=== PATIENT | female | born 1945 | race Caucasian/White ===

== ENCOUNTER → 2021-03-17 | Day surgery (SDC) | payer MEDICARE ==
[2021-03-17 09:51] LABS: African American GFR (CKD) >90 (>60 ml/min/1.73 sqM); Blood Urea Nitrogen 17 mg/dL (7-17); Non-African American GFR(CKD) 87 (>60 ml/min/1.73 sqM)
[2021-03-17 11:59] VITALS: RESP 16
--- NOTE | 2021-03-17 12:30 | CT ---
EXAMINATION TYPE: CT brain w con DATE OF EXAM: 03/17/2021 COMPARISON: None HISTORY: history of breast cancer, mets CT DLP: 993.9 mGycm Automated exposure control for dose reduction was used. CONTRAST: CT scan of the head is performed with IV Contrast, patient injected with 100 mL of Isovue 300. FINDINGS: There is no abnormal enhancing mass or midline shift identified. The ventricles and sulci are within normal limits in size. The globes are intact and the visualized sinuses are clear. Suspicion for a 5 mm area of enhancement in the posterior parietal white matter on axial image 31. Recommend MRI. [employer] niocervical junction demonstrates low-lying cerebellar tonsils. Faint low attenuation in the white ma tter are nonspecific but most typical of remote white matter ischemia. IMPRESSION: 1. Suspicion for a 5 mm nodular area of enhancement posterior right parietal white matter axial image 31. Recommend follow-up MRI. 2. Correlate for Chiari malformation. Recommend follow-up MRI.
[2021-03-17 13:33] VITALS: BP 125/50; PULSE 69; TEMP 97.5
--- NOTE | 2021-03-17 13:45 | USB ---
EXAMINATION TYPE: US biopsy breast VAD LT DATE OF EXAM: 03/17/2021 CLINICAL HISTORY: N63 Breast Lump mass,C50.012,Z03.89,Z85.3 HX OF CA. TECHNIQUE: Ultrasound guided vaccuum assisted core biopsy of left breast. COMPARISON: Mammogram 03/17/2021 FINDINGS: The ultrasound guided core biopsy procedure was explained to the patient. The risks, benef its, alternatives were discussed. An informed consent was then obtained. Timeout was performed. The patient was placed in supine positioning for imaging and for the procedure. The overlying skin w as prepped with betadine and sterilely draped in usual sterile fashion. Lidocaine 1% was used as ane sthetic into the skin and deeper breast tissue up to area of concern in the breast. Lidocaine with ep inephrine was used deeper regions adjacent to the lesion. A small skin eleazar was made with surgical sc alpel. Under ultrasound guidance, a 12-gauge vacuum assisted biopsy device was used to obtain 6 core samples . A biopsy clip was left in lesion. Waiting clip was placed at the lateral edge of the lesion on ul trasound. Good hemostasis was obtained with direct pressure. Discharge instructions were discussed with the emi staples. The patient will follow up with the referring physician for results. Postprocedure mammogram: The patient was transferred to mammography for physician ordered post proced ure mammogram for clip placement verification. The clip is in the expected region of the biopsy. The patient tolerated the procedure well without any immediate complication. The patient was dischar ged to home in stable condition. IMPRESSION: 1. Successful ultrasound guided biopsy left breast. Recommendations: 1. Recommendations are pending pathology results.
--- NOTE | 2021-03-18 14:44 | MM ---
Reason for exam: clinical finding. History: Patient is postmenopausal, has history of breast cancer at age 75, and history of other cancer. Family history of breast cancer in sister at age 60. Chemotherapy, October 2020. Benign excisional biopsy of the right breast, 2000. Physical Findings: Nurse did not find any significant physical abnormalities on exam. MG 3D Diag Mammo W/Cad DENNIS Bilateral CC and MLO view(s) were taken. No prior studies available for comparison. The breast tissue is heterogeneously dense. This may lower the sensitivity of mammography. Finding: There are extensive linear, fine, round, grouped/clustered calcifications in the upper outer quadrant, anterior position of the left breast 3cm from the nipple. Previous mammotome biopsy in the right breast. These results were verbally communicated with the patient and result sheet given to the patient on 03/17/21. ASSESSMENT: Incomplete: need additional imaging evaluation, BI-RAD 0 RECOMMENDATION: Ultrasound of the left breast.
--- NOTE | 2021-03-18 14:54 | USB ---
Reason for exam: additional evaluation requested from abnormal screening. History: Patient is postmenopausal, has history of breast cancer at age 75, and history of other cancer. Family history of breast cancer in sister at age 60. Chemotherapy, October 2020. Benign excisional biopsy of the right breast, 2000. US Breast Axilla LT Left complete breast ultrasound includes all four quadrants, the retroareolar region and axilla. Finding demonstrates a 1.6 x 1.2 x 1.8cm spiculated, irregular, hypoechoic, vascular lesion at 1 o'clock and a duct ectasia with debris and calcification at the posterior nipple. These results were verbally communicated with the patient and result sheet given to the patient on 03/17/21. ASSESSMENT: Suspicious, BI-RAD 4 RECOMMENDATION: Ultrasound core biopsy of the left breast. Called Dr. Ocampo's office with mammographic findings. Biopsy scheduled for 03/17/21 at 1:00. PRELIMINARY REPORT CALLED AND FAXED TO DR. OCAMPO ON 03/17/21.
== END ==
LOC: EDSTATUS 07:40 → RADMAMWWP 07:40
PROVIDERS: ATTEND Internal Medicine Hematology & Oncology
DX: N63.20 Unspecified lump in the left breast, unspecified quadrant (principal); Z85.3 Personal history of malignant neoplasm of breast; C50.012 Malignant neoplasm of nipple and areola, left female breast; Z78.0 Asymptomatic menopausal state; Z80.3 Family history of malignant neoplasm of breast
CPT/HCPCS: 38525; 88305; 82565; 84520; 77066; 19083; 76642; 70460; 36415; G0279; A4648; J2001; Q9967; 77062; 77065

== ENCOUNTER → 2021-04-15 | Outpatient (CLI) | payer MEDICARE ==
[2021-04-15 12:03] LABS: African American GFR (CKD) >90 (>60 ml/min/1.73 sqM); Blood Urea Nitrogen 19 mg/dL (7-17); Non-African American GFR(CKD) 88 (>60 ml/min/1.73 sqM)
--- NOTE | 2021-04-15 13:59 | CT ---
EXAMINATION TYPE: CT ChestAbdPelvis w con DATE OF EXAM: 04/15/2021 COMPARISON: None at this institution. HISTORY: Breast cancer, METS suspected CT DLP: 736.1 mGycm. Automated Exposure Control for Dose Reduction was Utilized. CONTRAST: CT scan of the thorax, abdomen and pelvis is performed with oral and with IV Contrast, patient inject ed with 100 mL of Isovue 300. FINDINGS: LUNGS: Mild to moderate biapical pleural/parenchymal scarring. Mild to moderate bibasilar parenchymal linear scarring and/or atelectasis. Slightly more nodular appearance just above diaphragm, for refer ence and 1.9 x 1.4 cm nodule or nodular thickening axial image 47. Additional smaller areas of nodula rity in both bases noted Reticulation in the superior aspect right lower lobe MEDIASTINUM: There are no greater than 1 cm hilar or mediastinal lymph nodes. Tiny pericardial effusi on is seen. Mild cardiomegaly. OTHER: Right internal jugular Mediport catheter terminates in SVC. Surgical changes left breast just above the nipple axial image 28. Nonspecific but suspicious 9 mm left axillary lymph node axial image 18. LIVER/GB: Scattered hypodense lesions throughout the liver, some consistent with benign thin-walled c ysts, others too small to definitively characterize like right hepatic dome lesion on axial image 51. PANCREAS: No significant abnormality is seen. SPLEEN: No significant abnormality is seen. ADRENALS: No significant abnormality is seen. KIDNEYS: No significant abnormality is seen. BOWEL: Small sized hiatal hernia. Oral contrast reaches level of right colon. No suspicious small or large bowel dilatation GENITAL ORGANS: Slightly retroflexed uterus. Roughly 1.0 cm fundal calcification possible calcified f ibroid axial image 102 anteriorly. LYMPH NODES: No greater than 1cm abdominal or pelvic lymph nodes are appreciated. OSSEOUS STRUCTURES: Demineralization is present. Kyphoplasty at moderate to severe compression fractu re L4 level. Slight grade 1 anterolisthesis L3 on L4. Suspicious round sclerotic lesion posterior to T9 level sagittal image 57. Suspicious smaller sclerotic foci involving T10 vertebra are thought pres ent. Incidental calcified disc T10-T11 level. OTHER: No significant additional abnormality is seen. IMPRESSION: Nonspecific but Suspicious 9 mm left axillary lymph node. Moderate basilar parenchymal s carring and/or atelectasis with slightly suspicious nodular component just above diaphragm bilaterall y. Nonspecific liver lesions. Nonspecific but suspicious sclerotic foci largest lesion T9 level. All findings should be correlated with old outside imaging to better evaluate if neoplastic in origin and to determine need for further workup.
== END | disposition home or self-care (01) ==
LOC: RADCTMAIN 11:15
PROVIDERS: ATTEND Internal Medicine Hematology & Oncology
DX: Z03.89 Encounter for observation for other suspected diseases and conditions ruled out (principal); C50.012 Malignant neoplasm of nipple and areola, left female breast
CPT/HCPCS: 82565; 84520; 71260; 74177; 36415; Q9967 ×2

== ENCOUNTER → 2021-05-09 | Outpatient (CLI) | payer MEDICARE ==
--- NOTE | 2021-05-09 09:51 | PE ---
EXAMINATION TYPE: PET CT fusion skull to thigh DATE OF EXAM: 05/09/2021 COMPARISON: Most recent full body CT April 15, 2021 HISTORY: Recent abnormal CT, solitary pulmonary nodule. Left-sided breast cancer diagnosed and treated 2010 per patient. Recent benign left breast biopsy Aug ust 2020 TECHNIQUE: Following the intravenous administration of 12.58 mCi of F-18 FDG, whole body images are performed from the skull base to the midthigh. Images are reviewed on the computer in the coronal, a xial, and sagittal planes. Reconstructed rotating images are created on independent workstation and reviewed on the computer. A localization and attenuation correction CT is performed in conjunction with the PET scan. Blood glucose level equals 82. SCAN: Subsequent Scan FINDINGS: SKULL BASE AND NECK: No areas of abnormal hypermetabolic uptake. CHEST, MEDIASTINUM, AND HILAR REGION: Suspect treatment changes to the left breast laterally with jarocho cifications axial image 88. Slightly prominent but subcentimeter left axillary lymph node axial image 76 shows no hypermetabolic uptake. Slight nodularity or nodular scarring posteriorly in the lung bas es remains present without abnormal hypermetabolic uptake. No areas of abnormal hypermetabolic uptake . ABDOMEN AND PELVIS: No areas of abnormal hypermetabolic uptake. Normal excretion. OSSEOUS STRUCTURES: No areas of abnormal hypermetabolic uptake. OTHER CT: Stable right internal jugular Mediport catheter. Coronary artery calcification redemonstrat ed. Stable tiny pericardial effusion and mild cardiomegaly. Simple appearing thin-walled cysts throughout the liver redemonstrated. Gallbladder surgically absent . Small-sized hiatal hernia redemonstrated. Calcified near 1 cm uterine fibroid in the fundus redemon strated. Vertebral plasty at mild to moderate compression fracture L4 level again seen. Underlying scoliotic c urvature. Facet arthropathy lower lumbar levels. IMPRESSION: No suspicious hypermetabolic uptake to suggest metastatic hypermetabolic malignancy.
== END | disposition home or self-care (01) ==
LOC: RADPETMAIN 07:27
PROVIDERS: ATTEND Internal Medicine Hematology & Oncology
DX: C50.012 Malignant neoplasm of nipple and areola, left female breast (principal); R91.1 Solitary pulmonary nodule
CPT/HCPCS: 78815; A9552

== ENCOUNTER 2021-06-10 21:17 | Inpatient (IN) | payer MEDICARE ==
[2021-06-10] MEDS ORDERED: SODIUM CHLORIDE 0.9% 1,000 ML IV STA (21:35)
--- NOTE | 2021-06-10 21:40 | ED ---
Recheck HPI - General Chief Complaint: Recheck/Abnormal Lab/Rx Stated Complaint: Irregular CT Time Seen by Provider: 06/10/21 21:32 Source: patient, family, RN notes reviewed, old records reviewed, Caregiver Mode of arrival: ambulatory Limitations: no limitations, altered mental status - History of Present Illness Initial Comments: This is a 75-year-old female to the emergency room x-ray. Patient Dese for evaluation of altered mental status with altered an abnormal outpatient computed tomography scan. Patient presents today for evaluation regards to these symptoms. Patient was called and told to come the hospital secondary to abnormal computed tomography scan. Patient is aware of positive computed tomography scan findings for brain metastasis MD Complaint: abnormal lab (Computed tomography scan positive for brain m etastasis) Initial Visit For: other (Occasional headaches and altered mental status) Returns Today for: persistent/worsening pain related to initial visit Symptoms Since Prior Visit: worsening pain Context: called for abnormal lab result (Computed tomography scan abnormal) Associated Symptoms: none Treatments Prior to Arrival: home treatments - Related Data Home Medications Medication Instructions Recorded Confirmed Levothyroxine Sodium [Synthroid] 150 mcg PO DAILY 03/10/21 06/10/21 Calcium Carbonate [Calcium] 600 mg PO DAILY 06/10/21 06/10/21 Cholecalciferol [Vitamin D3 (25 25 mcg PO DAILY 06/10/21 06/10/21 Mcg = 1000 Iu)] Gabapentin [Neurontin] 300 mg PO DAILY 06/10/21 06/10/21 HYDROmorphone HCL 2 - 4 mg PO Q3H PRN 06/10/21 06/10/21 Sennosides [Senna] 17.2 mg PO DAILY 06/10/21 06/10/21 fentaNYL 50MCG/HR PATCH [Duragesic 50 mcg TRANSDERM Q72H 06/10/21 06/10/21 50MCG/HR] Allergies Allergy/AdvReac Type Severity Reaction Status Date / Time shellfish derived [Shellfish] Allergy Vomiting Verified 06/10/21 21:54 Review of Systems ROS Statement: Those systems with pertinent positive or pertinent negative responses have been documented in the HPI. ROS Other: All systems not noted in ROS Statement are negative. Past Medical History Past Medical History: Cancer, Hypertension, Pneumonia, Thyroid Disorder Additional Past Medical History / Comment(s): cancer to the spine, brain, lungs, chemo 2020 History of Any Multi-Drug Resistant Organisms: None Reported Past Surgical History: Back Surgery Additional Past Surgical History / Comment(s): L4 surgery October 2020 Past Anesthesia/Blood Transfusion Reactions: No Reported Reaction Past Psychological History: No Psychological Hx Reported Smoking Status: Former smoker Past Alcohol Use History: None Reported Past Drug Use History: None Reported General Exam Limitations: no limitations General appearance: alert, in no apparent distress Head exam: Present: atraumatic, normocephalic, normal inspection Eye exam: Present: normal appearance, PERRL, EOMI. Absent: scleral icterus, conjunctival injection, periorbital swelling ENT exam: Present: normal exam, mucous membranes moist Neck exam: Present: normal inspection. Absent: tenderness, meningismus, lymphadenopathy Respiratory exam: Present: normal lung sounds bilaterally. Absent: respiratory distress, wheezes, rales, rhonchi, stridor Cardiovascular Exam: Present: regular rate, normal rhythm, normal heart sounds. Absent: systolic murmur, diastolic murmur, rubs, gallop, clicks GI/Abdominal exam: Present: soft, normal bowel sounds. Absent: distended, tenderness, guarding, rebound, rigid Extremities exam: Present: normal inspection, full ROM, normal capillary refill. Absent: tenderness, pedal edema, joint swelling, calf tenderness Back exam: Present: normal inspection Neurological exam: Present: alert, oriented X3, CN II-XII intact Psychiatric exam: Present: normal affect, normal mood Skin exam: Present: warm, dry, intact, normal color. Absent: rash Course Vital Signs 06/10/21 21:25 Temperature 98.7 F Pulse Rate 71 Respiratory 20 Rate Blood Pressure 172/77 O2 Sat by Pulse 99 Oximetry - Reevaluation(s) Reevaluation #1: 06/10/21 22:50 Medical record is reviewed Reevaluation #2: 06/10/21 22:50 Patient family informed of results and questions have been answered - Consultations Consultation #1: Spoke with H who agree to admit this patient Medical Decision Making - Medical Decision Making 75 female with breast cancer now no metastasis to brain. Patient be admitted for steroids secondary to vasogenic edema, monitoring and cancer control - Lab Data Result diagrams: 06/10/21 21:56 06/10/21 21:56 Lab Results 06/10/21 06/10/21 06/10/21 Range/Units 21:56 21:56 21:56 WBC 5.0 (3.8-10.6) k/uL RBC 4.15 (3.80-5.40) m/uL Hgb 12.5 (11.4-16.0) gm/dL Hct 38.6 (34.0-46.0) % MCV 93.0 (80.0-100.0) fL MCH 30.0 (25.0-35.0) pg MCHC 32.3 (31.0-37.0) g/dL RDW 16.2 H (11.5-15.5) % Plt Count 206 (150-450) k/uL MPV 7.2 Neutrophils % 59 % Lymphocytes % 30 % Monocytes % 6 % Eosinophils % 3 % Basophils % 1 % Neutrophils # 2.9 (1.3-7.7) k/uL Lymphocytes # 1.5 (1.0-4.8) k/uL Monocytes # 0.3 (0-1.0) k/uL Eosinophils # 0.1 (0-0.7) k/uL Basophils # 0.0 (0-0.2) k/uL Anisocytosis Slight PT 10.6 (9.0-12.0) sec INR 1.0 (<1.2) APTT 24.8 (22.0-30.0) sec Sodium 136 L (137-145) mmol/L Potassium 4.1 (3.5-5.1) mmol/L Chloride 100 (98-107) mmol/L Carbon Dioxide 30 (22-30) mmol/L Anion Gap 6 mmol/L BUN 20 H (7-17) mg/dL Creatinine 0.83 (0.52-1.04) mg/dL Est GFR (CKD-EPI)AfAm 81 (>60 ml/min/1.73 sqM) Est GFR (CKD-EPI)NonAf 70 (>60 ml/min/1.73 sqM) Glucose 96 (74-99) mg/dL Calcium 10.9 H (8.4-10.2) mg/dL Phosphorus 3.9 (2.5-4.5) mg/dL Magnesium 2.2 (1.6-2.3) mg/dL Total Bilirubin 0.4 (0.2-1.3) mg/dL AST 33 (14-36) U/L ALT 16 (4-34) U/L Alkaline Phosphatase 51 (38-126) U/L Troponin I (0.000-0.034) ng/mL Total Protein 6.8 (6.3-8.2) g/dL Albumin 4.0 (3.5-5.0) g/dL 06/10/21 Range/Units 21:56 WBC (3.8-10.6) k/uL RBC (3.80-5.40) m/uL Hgb (11.4-16.0) gm/dL Hct (34.0-46.0) % MCV (80.0-100.0) fL MCH (25.0-35.0) pg MCHC (31.0-37.0) g/dL RDW (11.5-15.5) % Plt Count (150-450) k/uL MPV Neutrophils % % Lymphocytes % % Monocytes % % Eosinophils % % Basophils % % Neutrophils # (1.3-7.7) k/uL Lymphocytes # (1.0-4.8) k/uL Monocytes # (0-1.0) k/uL Eosinophils # (0-0.7) k/uL Basophils # (0-0.2) k/uL Anisocytosis PT (9.0-12.0) sec INR (<1.2) APTT (22.0-30.0) sec Sodium (137-145) mmol/L Potassium (3.5-5.1) mmol/L Chloride (98-107) mmol/L Carbon Dioxide (22-30) mmol/L Anion Gap mmol/L BUN (7-17) mg/dL Creatinine (0.52-1.04) mg/dL Est GFR (CKD-EPI)AfAm (>60 ml/min/1.73 sqM) Est GFR (CKD-EPI)NonAf (>60 ml/min/1.73 sqM) Glucose (74-99) mg/dL Calcium (8.4-10.2) mg/dL Phosphorus (2.5-4.5) mg/dL Magnesium (1.6-2.3) mg/dL Total Bilirubin (0.2-1.3) mg/dL AST (14-36) U/L ALT (4-34) U/L Alkaline Phosphatase (38-126) U/L Troponin I <0.012 (0.000-0.034) ng/mL Total Protein (6.3-8.2) g/dL Albumin (3.5-5.0) g/dL - Radiology Data Radiology results: report reviewed (CT brain done an outpatient basis was positive for brain metastasis) Disposition Clinical Impression: Altered mental state, Brain metastasis, Breast cancer Disposition: ADMITTED IP TO THIS HOSP Condition: Fair Is patient prescribed a controlled substance at d/c from ED?: No Referrals: Steffanie Riley MD [Primary Care Provider] - 1-2 days
[2021-06-10] MEDS: DEXAMETHASONE SOD PHOSPHATE 10 MG/ML 1 ML VIAL IVP STA ×2 (22:12→23:22)
[2021-06-10 22:20] LABS: Anisocytosis Slight; Basophils % (A) 1 %; Eosinophils # (A) 0.1 k/uL (0-0.7); Eosinophils % (A) 3 %; HCT 38.6 % (34.0-46.0); HGB 12.5 gm/dL (11.4-16.0); Lymphocytes # (A) 1.5 k/uL (1.0-4.8); Lymphocytes % (A) 30 %; MCHC 32.3 g/dL (31.0-37.0); Mean Platelet Volume 7.2; Monocytes # (A) 0.3 k/uL (0-1.0); Monocytes % (A) 6 %; Neutrophils # (A) 2.9 k/uL (1.3-7.7); Neutrophils % (A) 59 %; Platelet Count 206 k/uL (150-450); RBC 4.15 m/uL (3.80-5.40); RDW 16.2 % (11.5-15.5)
[2021-06-10 22:29] LABS: Partial Thromboplastin Time 24.8 sec (22.0-30.0); Prothrombin Time 10.6 sec (9.0-12.0)
[2021-06-10 22:37] LABS: Calcium 10.9 mg/dL (8.4-10.2); Magnesium 2.2 mg/dL (1.6-2.3); Phosphorus 3.9 mg/dL (2.5-4.5); Potassium 4.1 mmol/L (3.5-5.1); Total Bilirubin 0.4 mg/dL (0.2-1.3); Total Protein 6.8 g/dL (6.3-8.2)
[2021-06-10] MEDS ORDERED: NALOXONE 0.4 MG/ML 1 ML VIAL IV PRN (22:46)
[2021-06-10] MEDS ORDERED: MORPHINE SULFATE 4 MG/ML SYRINGE IV PRN (22:46)
[2021-06-10] MEDS ORDERED: PROCHLORPERAZINE 5 MG TAB PO PRN (22:46)
[2021-06-10] MEDS ORDERED: LORazepam 2 MG/ML INJ IV PRN (22:46)
[2021-06-10] MEDS: SODIUM CHLORIDE 0.9% 1,000 ML IV SCH (23:22)
[2021-06-11 03:48] LABS: Anisocytosis Slight; Basophils % (A) 0 %; Eosinophils # (A) 0.1 k/uL (0-0.7); Eosinophils % (A) 3 %; HCT 33.4 % (34.0-46.0); HGB 10.7 gm/dL (11.4-16.0); Lymphocytes # (A) 1.4 k/uL (1.0-4.8); Lymphocytes % (A) 37 %; MCH 30.2 pg (25.0-35.0); MCV 94.5 fL (80.0-100.0); Mean Platelet Volume 7.3; Monocytes # (A) 0.2 k/uL (0-1.0); Monocytes % (A) 6 %; Neutrophils # (A) 1.9 k/uL (1.3-7.7); Neutrophils % (A) 50 %; Platelet Count 170 k/uL (150-450); RBC 3.54 m/uL (3.80-5.40); WBC 3.9 k/uL (3.8-10.6)
[2021-06-11 04:15] LABS: Albumin 3.2 g/dL (3.5-5.0); Calcium 9.9 mg/dL (8.4-10.2); Potassium 3.9 mmol/L (3.5-5.1); Total Bilirubin 0.3 mg/dL (0.2-1.3); Total Protein 5.8 g/dL (6.3-8.2)
[2021-06-11] MEDS: DEXAMETHASONE SOD PHOSPHATE 10 MG/ML 1 ML VIAL IVP SCH ×5 (05:13→20:36)
[2021-06-11] MEDS: SODIUM CHLORIDE 0.9% 1,000 ML IV SCH ×2 (09:14→17:34)
[2021-06-11 12:33] LABS: T4, Free (Free Thyroxine) 1.02 ng/dL (0.78-2.19)
--- NOTE | 2021-06-11 14:12 | P.HPIM ---
History of Present Illness Patient was a 75-year-old female was sent in because of her memory difficulties and patient is found to have computed tomography scan as an outpatient and found to have a metastatic lesion in the brain along with vasogenic edema after which patient was a presented to the hospital and patient will undergo MRI imaging. Patient recently moved to the town patient was a diagnosed with a breast cancer received chemotherapy at her previous location patient is still undergoing workup now here and does not initiated on chemotherapy here in this town. Patient denied any fever chills patient has elevated TSH with normal T4 patient is supposed to take levothyroxine which she has not been taking and patient is being resumed on that medication at this time. REVIEW OF SYSTEMS: CONSTITUTIONAL: No fever, no malaise, no fatigue. HEENT: No recent visual problems or hearing problems. Denied any sore throat. CARDIOVASCULAR: No chest pain, orthopnea, PND, no palpitations, no syncope. PULMONARY: No shortness of breath, no cough, no hemoptysis. GASTROINTESTINAL: No diarrhea, no nausea, no vomiting, no abdominal pain. NEUROLOGICAL: No headaches, no weakness, no numbness. HEMATOLOGICAL: Denies any bleeding or petechiae. GENITOURINARY: Denies any burning micturition, frequency, or urgency. MUSCULOSKELETAL/RHEUMATOLOGICAL: Denies any joint pain, swelling, or any muscle pain. ENDOCRINE: Denies any polyuria or polydipsia. The rest of the 14-point review of systems is negative. PHYSICAL EXAMINATION: GENERAL: The patient is alert and oriented x3, not in any acute distress. Well developed, well nourished. HEENT: Pupils are round and equally reacting to light. EOMI. No scleral icterus. No conjunctival pallor. Normocephalic, atraumatic. No pharyngeal erythema. No thyromegaly. CARDIOVASCULAR: S1 and S2 present. No murmurs, rubs, or gallops. PULMONARY: Chest is clear to auscultation, no wheezing or crackles. ABDOMEN: Soft, nontender, nondistended, normoactive bowel sounds. No palpable organomegaly. MUSCULOSKELETAL: No joint swelling or deformity. EXTREMITIES: No cyanosis, clubbing, or pedal edema. NEUROLOGICAL: Gross neurological examination did not reveal any focal deficits. SKIN: No rashes. 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 Oncology evaluated the patient. - hyperthyroidism patient will be resumed on her levothyroxine patient has elevated TSH as patient has not been taking her levothyroxine. 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 and patient is presently on fentanyl patch which was resumed patient denied any constipation at this time DVT prophylaxis: Lovenox Past Medical History Past Medical History: Cancer, Hypertension, Pneumonia, Thyroid Disorder Additional Past Medical History / Comment(s): cancer to the breast Ca with mets to spine, brain, liver, lungs, chemo 2020 History of Any Multi-Drug Resistant Organisms: None Reported Past Surgical History: Back Surgery Additional Past Surgical History / Comment(s): L4 surgery October 2020 Past Anesthesia/Blood Transfusion Reactions: No Reported Reaction Past Psychological History: No Psychological Hx Reported Smoking Status: Former smoker Past Alcohol Use History: None Reported Past Drug Use History: None Reported - Past Family History Father Family Medical History: Cancer Additional Family Medical History / Comment(s): colon Sister(s) Family Medical History: Cancer Additional Family Medical History / Comment(s): breast Medications and Allergies Home Medications Medication Instructions Recorded Confirmed Type Levothyroxine Sodium [Synthroid] 150 mcg PO DAILY 03/10/21 06/11/21 History Calcium Carbonate [Calcium] 600 mg PO DAILY 06/10/21 06/11/21 History Cholecalciferol [Vitamin D3 (25 25 mcg PO DAILY 06/10/21 06/11/21 History Mcg = 1000 Iu)] Gabapentin [Neurontin] 300 mg PO DAILY 06/10/21 06/11/21 History HYDROmorphone HCL 2 - 4 mg PO Q3H PRN 06/10/21 06/11/21 History Sennosides [Senna] 17.2 mg PO DAILY 06/10/21 06/11/21 History fentaNYL 50MCG/HR PATCH [Duragesic 50 mcg TRANSDERM Q72H 06/10/21 06/11/21 History 50MCG/HR] Allergies Allergy/AdvReac Type Severity Reaction Status Date / Time shellfish derived [Shellfish] Allergy Vomiting Verified 06/11/21 11:28 Physical Exam Vitals: Vital Signs Temp Pulse Resp BP Pulse Ox 06/11/21 10:58 97 06/11/21 07:26 98.0 F 66 18 147/81 100 06/11/21 06:55 61 18 129/66 99 06/11/21 04:48 75 16 156/81 95 06/10/21 21:25 98.7 F 71 20 172/77 99 Intake and Output 06/10/21 06/11/21 06/11/21 22:59 06:59 14:59 Other: Weight 77.111 kg 78.5 kg Results CBC & Chem 7: 06/11/21 03:11 06/11/21 03:11 Labs: Abnormal Lab Results - Last 24 Hours (Table) 06/10/21 06/10/21 06/10/21 Range/Units 21:56 21:56 21:56 RBC (3.80-5.40) m/uL Hgb (11.4-16.0) gm/dL Hct (34.0-46.0) % RDW 16.2 H (11.5-15.5) % Sodium 136 L (137-145) mmol/L BUN 20 H (7-17) mg/dL Calcium 10.9 H (8.4-10.2) mg/dL Total Protein (6.3-8.2) g/dL Albumin (3.5-5.0) g/dL TSH 49.400 H (0.465-4.680) mIU/L 06/11/21 06/11/21 Range/Units 03:11 03:11 RBC 3.54 L (3.80-5.40) m/uL Hgb 10.7 L (11.4-16.0) gm/dL Hct 33.4 L (34.0-46.0) % RDW 16.0 H (11.5-15.5) % Sodium 136 L (137-145) mmol/L BUN 18 H (7-17) mg/dL Calcium (8.4-10.2) mg/dL Total Protein 5.8 L (6.3-8.2) g/dL Albumin 3.2 L (3.5-5.0) g/dL TSH (0.465-4.680) mIU/L Thrombosis Risk Factor Assmnt - Choose All That Apply Any of the Below Risk Factors Present?: Yes Each Factor Represents 1 point: Obesity (BMI >25) Other Risk Factors: Yes Each Risk Factor Represents 2 Points: Age 61-74 years, Malignancy Other congenital or acquired thrombophilia - If yes, enter type in comment: No Thrombosis Risk Factor Assessment Total Risk Factor Score: 5 Thrombosis Risk Factor Assessment Level: High Risk
[2021-06-11] MEDS: CALCIUM CARBONATE 500 MG CHEWABLE PO PRN ×2 (15:51→21:12)
--- NOTE | 2021-06-11 16:27 | P.CONS ---
History of Present Illness - Reason for Consult Consult date: 06/11/21 Metastatic Breast Cancer Requesting physician: Samir Garcia - Chief Complaint MS changes - History of Present Illness Mrs. Méndez is a pleasant female who presented to the emergency department after she had a CT scan that revealed two likely metastatic lesions in the brain with associated surrounding vasogenic edema. No midline shift identified. Patient was diagnosed with Metastatic breast cancer in October 2020, She underwent molecular and biomarker testing and started on Abraxane and atezolumab. She also underwent palliaitive radiation to destructive lesion in T4. In January 2021 her treatment was unfortunetley complicated with colitis and pneumonitis requiring hospitalizations. Her most recent PET scan did not show any progressive disease or new metastatic lesions. However her mental status, memory, emotional control has been labile per daughter (who she lives with). She had initially refused MRI of brain but agreed to CT. CT scan revealing two new lesions on 06/10/21, with patient symptomatic and worsening over past week it was unclear if this was r elated to new brain mets or thyroid (she had stopped taking her synthroid without telling anyone per daughter). She was given a bolus dose dexamethasone in hospital, and then continued on 4mg q6, with PPI. MRI brain ordered and plan for ativan prior, discussed with patient and daughter. Medical team managing thyroid. Review of Systems All systems: negative Constitutional: Reports as per HPI Past Medical History Past Medical History: Cancer, Hypertension, Pneumonia, Thyroid Disorder Additional Past Medical History / Comment(s): cancer to the spine, brain, lungs, chemo 2020 History of Any Multi-Drug Resistant Organisms: None Reported Past Surgical History: Back Surgery Additional Past Surgical History / Comment(s): L4 surgery October 2020 Past Anesthesia/Blood Transfusion Reactions: No Reported Reaction Past Psychological History: No Psychological Hx Reported Smoking Status: Former smoker Past Alcohol Use History: None Reported Past Drug Use History: None Reported - Past Family History Father Family Medical History: Cancer Additional Family Medical History / Comment(s): colon Sister(s) Family Medical History: Cancer Additional Family Medical History / Comment(s): breast Medications and Allergies Home Medications Medication Instructions Recorded Confirmed Type Levothyroxine Sodium [Synthroid] 150 mcg PO DAILY 03/10/21 06/11/21 History Calcium Carbonate [Calcium] 600 mg PO DAILY 06/10/21 06/11/21 History Cholecalciferol [Vitamin D3 (25 25 mcg PO DAILY 06/10/21 06/11/21 History Mcg = 1000 Iu)] Gabapentin [Neurontin] 300 mg PO DAILY 06/10/21 06/11/21 History HYDROmorphone HCL 2 - 4 mg PO Q3H PRN 06/10/21 06/11/21 History Sennosides [Senna] 17.2 mg PO DAILY 06/10/21 06/11/21 History fentaNYL 50MCG/HR PATCH [Duragesic 50 mcg TRANSDERM Q72H 06/10/21 06/11/21 History 50MCG/HR] Allergies Allergy/AdvReac Type Severity Reaction Status Date / Time shellfish derived [Shellfish] Allergy Vomiting Verified 06/11/21 11:28 Physical Exam Vitals: Vital Signs Temp Pulse Resp BP Pulse Ox 06/11/21 07:26 98.0 F 66 18 147/81 100 06/11/21 06:55 61 18 129/66 99 06/11/21 04:48 75 16 156/81 95 06/10/21 21:25 98.7 F 71 20 172/77 99 Intake and Output 06/10/21 06/11/21 06/11/21 22:59 06:59 14:59 Other: Weight 77.111 kg - Constitutional General appearance: cooperative, no acute distress - EENT Eyes: EOMI ENT: NA/AT - Respiratory Respiratory: bilateral: CTA - Cardiovascular Rhythm: regular - Gastrointestinal General gastrointestinal: normal bowel sounds, soft - Integumentary Integumentary: pale - Musculoskeletal Musculoskeletal: generalized weakness - Psychiatric poor historian Psychiatric: A&O x's 3 Results CBC & Chem 7: 06/11/21 03:11 06/11/21 03:11 Labs: Abnormal Lab Results - Last 24 Hours (Table) 06/10/21 06/10/21 06/11/21 Range/Units 21:56 21:56 03:11 RBC 3.54 L (3.80-5.40) m/uL Hgb 10.7 L (11.4-16.0) gm/dL Hct 33.4 L (34.0-46.0) % RDW 16.2 H 16.0 H (11.5-15.5) % Sodium 136 L (137-145) mmol/L BUN 20 H (7-17) mg/dL Calcium 10.9 H (8.4-10.2) mg/dL Total Protein (6.3-8.2) g/dL Albumin (3.5-5.0) g/dL 06/11/21 Range/Units 03:11 RBC (3.80-5.40) m/uL Hgb (11.4-16.0) gm/dL Hct (34.0-46.0) % RDW (11.5-15.5) % Sodium 136 L (137-145) mmol/L BUN 18 H (7-17) mg/dL Calcium (8.4-10.2) mg/dL Total Protein 5.8 L (6.3-8.2) g/dL Albumin 3.2 L (3.5-5.0) g/dL CT Scan - head: report reviewed Assessment and Plan (1) Brain metastasis Current Visit: Yes Status: Acute Code(s): C79.31 - SECONDARY MALIGNANT NEOPLASM OF BRAIN SNOMED Code(s): 79737749 (2) Breast cancer Current Visit: Yes Status: Acute Code(s): C50.919 - MALIGNANT NEOPLASM OF UNSP SITE OF UNSPECIFIED FEMALE BREAST SNOMED Code(s): 415247139 (3) Vasogenic brain edema Current Visit: Yes Status: Acute Code(s): G93.6 - CEREBRAL EDEMA SNOMED Code(s): 418186084 Plan: MRI Brain with and Without Contrast - Lorazepam prior for sedation Dexamethasone 4mg q6 for vasogenic edema and PPPI Dr. Alas from Radiation oncology consulted, discussed with him for possible plan of gamma knofe to two lesions Physician attest: I have completed the full history and physical and agree with above dictation, dictated as a ascribe.
[2021-06-11] MEDS: PANTOPRAZOLE 40 MG TABLET PO SCH (17:34)
--- NOTE | 2021-06-11 20:32 | MR ---
EXAMINATION TYPE: MR brain wo/w con DATE OF EXAM: 06/11/2021 COMPARISON: CT brain from 1 day earlier. HISTORY: Breast cancer, abnormal CT. TECHNIQUE: Multiplanar, multisequence images of the brain and brainstem is performed without and with IV contras t, utilizing 8 mL intravenous Gadavist . FINDINGS: Diffusion weighted images demonstrate no evidence of a recent infarct or other diffusion ab normality. There is mild ventricular and sulcal prominence. Midline structures demonstrate normal morphology. The craniocervical junction appears within normal limits. There is persistent thin-walled cystic lesion with peripheral rim enhancement that has some anterior septation and posterior more thickened nodular component high right parieto-occipital level measuring 3.4 x 2.8 x 3.2 cm axial image 16 and coronal image 78 with surrounding vasogenic edema extending po steriorly and inferiorly. There is second thin-walled cyst or cystic lesion measuring 2.9 x 2.3 x 1.9 cm axial image 43 and coronal image 78 rim and thin septal enhancement with a enhancing thickened co mponent posterior inferiorly in the inferior right parietal region. Less well seen on CT there is a t hird rim-enhancing 6 mm focus with surrounding vasogenic edema high posterior left frontal lobe axial image 63. Dural venous sinuses appear patent. The visualized sinuses are clear and the globes are intact. Nasa l septum remains deviated to left of midline. IMPRESSION: 2 rim-enhancing larger cystic lesions redemonstrated right parietal occipital level and i nferior right parietal level. There is a third rim-enhancing 6 mm cystic lesion posterior left fronta l lobe. New findings from March 27, 2021 CT. Differential is somewhat extensive but metastatic dise ase is favored in patient with history of recently diagnosed breast cancer.
[2021-06-12] MEDS: SODIUM CHLORIDE 0.9% 1,000 ML IV SCH (05:21)
[2021-06-12] MEDS: DEXAMETHASONE SOD PHOSPHATE 10 MG/ML 1 ML VIAL IVP SCH ×2 (05:22→11:28)
[2021-06-12 05:27] VITALS: BP 139/71; PULSE 71; TEMP 96.9
[2021-06-12] MEDS ORDERED: LEVOTHYROXINE 75 MCG TAB PO SCH (06:30)
--- NOTE | 2021-06-12 07:50 | P.CONS ---
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 She was initially diagnosed with stage IV disease in October 2020 with disease involving the liver, lungs and thoracic spine. She underwent 3 cycles of systemic therapy with Abraxane/Atezo and had an excellent response. Her most recent PET/CT from May 09 shows no active malignancy. Unfortunately, the patient now presents with a new finding of brain metastasis. The patient's daughter reports that approximately 2 weeks ago she noticed some changes with her mom's thinking. The patient reported she was having some difficulty balancing her checkbook and had some episodes of confusion which were very unusual for her. She reports no difficulty with headaches, but has had a couple episodes of nausea. The patient underwent a CT scan of the brain on June 10 which revealed a new 2.6 x 2.8 cm cystic lesion in the right parietal lobe, as well as in the right lower parietal lobe A separate 2.9 x 2.1 cm mass with vasogenic edema. Her daughter feels she has had some spatial issues as well. The patient continues to have treatment for pain felt to be related to her malignancy, which is relatively unchanged (if anything improved). With her recent CT findings, the patient was recommended to come through the ER. She has been started on dexamethasone, and her thinking does seem more clear at the time of our conversation. MRI of the brain was performed on June 11, which redemonstrated the 2 cystic lesions in the right temporal lobe, as well as a separate 6 mm lesion in the left posterior frontal region. Review of Systems Constitutional: Denies chills, Denies fever Eyes: denies blurred vision Ears: deny: decreased hearing Ears, nose, mouth and throat: Denies headache Cardiovascular: Denies chest pain Respiratory: Denies cough, Denies dyspnea Gastrointestinal: Reports nausea, Reports vomiting Genitourinary: Denies flank pain Musculoskeletal: Reports gait dysfunction Integumentary: Denies rash Neurological: Reports change in mentation, Reports confusion, Reports gait dysfunction, Denies change in speech, Denies convulsions, Denies double vision, Denies headaches, Denies loss of vision, Denies memory loss, Denies numbness, Denies paralysis, Denies paresthesias, Denies syncope, Denies weakness Past Medical History Past Medical History: Cancer, Hypertension, Pneumonia, Thyroid Disorder Additional Past Medical History / Comment(s): cancer to the spine, brain, lungs, chemo 2020 History of Any Multi-Drug Resistant Organisms: None Reported Past Surgical History: Back Surgery Additional Past Surgical History / Comment(s): L4 surgery October 2020 Past Anesthesia/Blood Transfusion Reactions: No Reported Reaction Past Psychological History: No Psychological Hx Reported Smoking Status: Former smoker Past Alcohol Use History: None Reported Past Drug Use History: None Reported - Past Family History Father Family Medical History: Cancer Additional Family Medical History / Comment(s): colon Sister(s) Family Medical History: Cancer Additional Family Medical History / Comment(s): breast Medications and Allergies Home Medications Medication Instructions Recorded Confirmed Type Levothyroxine Sodium [Synthroid] 150 mcg PO DAILY 03/10/21 06/11/21 History Calcium Carbonate [Calcium] 600 mg PO DAILY 06/10/21 06/11/21 History Cholecalciferol [Vitamin D3 (25 25 mcg PO DAILY 06/10/21 06/11/21 History Mcg = 1000 Iu)] Gabapentin [Neurontin] 300 mg PO DAILY 06/10/21 06/11/21 History HYDROmorphone HCL 2 - 4 mg PO Q3H PRN 06/10/21 06/11/21 History Sennosides [Senna] 17.2 mg PO DAILY 06/10/21 06/11/21 History fentaNYL 50MCG/HR PATCH [Duragesic 50 mcg TRANSDERM Q72H 06/10/21 06/11/21 History 50MCG/HR] Allergies Allergy/AdvReac Type Severity Reaction Status Date / Time shellfish derived [Shellfish] Allergy Vomiting Verified 06/11/21 11:28 Physical Exam Vitals: Vital Signs Temp Pulse Resp BP Pulse Ox 06/12/21 05:26 96.9 F L 71 18 139/71 99 06/12/21 02:18 96.2 F L 90 18 160/77 97 06/11/21 20:00 95 17 06/11/21 14:00 98.6 F 95 17 113/68 95 06/11/21 10:58 97 Intake and Output 06/11/21 06/12/21 06/12/21 22:59 06:59 14:59 Intake Total 750 600 Balance 750 600 Intake: Intake, IV Titration 750 600 Amount Sodium Chloride 0.9% 1, 750 600 000 ml @ 75 mls/hr IV . [id number] [facility] Rx#:[id number] Other: # Voids 1 - Constitutional General appearance: no acute distress - EENT Eyes: EOMI, PERRLA ENT: hearing grossly normal - Neck Neck: no lymphadenopathy - Respiratory Respiratory: bilateral: CTA - Cardiovascular Rhythm: regular - Gastrointestinal General gastrointestinal: no soft, no tenderness - Integumentary Integumentary: no calor, no cellulitis - Neurologic Neurologic: CNII-XII intact - Musculoskeletal Musculoskeletal: strength equal bilaterally - Psychiatric Psychiatric: A&O x's 3, appropriate affect Results CBC & Chem 7: 06/11/21 03:11 06/11/21 03:11 Labs: Abnormal Lab Results - Last 24 Hours (Table) 06/10/21 Range/Units 21:56 TSH 49.400 H (0.465-4.680) mIU/L CT Scan - head: report reviewed, image reviewed MRI - head: report reviewed, image reviewed Assessment and Plan Assessment: The patient is a 75-year-old female with a history of metastatic triple negative cancer of the left breast. She was initially diagnosed with stage IV disease in October 2020 with disease involving the liver, lungs and thoracic spine. She underwent 3 cycles of systemic therapy with Abraxane/Atezo and had an excellent response. Her most recent PET/CT from May 09 shows no active malignancy. Unfortunately, the patient now presents with a new finding of brain metastasis. 1. Brain metastases: This is the most likely cause of the patient's confusion, mild nausea and episodes of altered mentation. Based on the patient's MRI, she presents with 3 separate metastatic lesions involving the brain. I discussed with the patient that provided she had a small number of lesions, she would be a candidate for radiosurgery based treatment. I discussed continuation of the patient's dexamethasone as her imaging does show some vasogenic edema. I discussed with the patient that she would first require a CT simulation for treatment planning. Treatment would be delivered over approximately 3-4 fractions. I discussed typical side effects of this treatment which includes, but are not limited to; fatigue, scalp irritation, reversible alopecia, headache, symptoms associated with edema such as nausea/vomiting or focal neurologic deficits. I discussed the risk of late effects such as radionecrosis. The patient understood these recommendations and is in agreement to move forward treatment. We will try to bring the patient over for simulation this AM (06/12) if possible. She may need an anxiolytic for mask making. 2. Metastatic left breast cancer: Based on outside reports this was felt to possibly be triple negative, but Dr. Trotter has been following with the patient and is working to confirm this. As she has not had any recent systemic progression, her systemic therapy has been on hold. Time with Patient: Greater than 30
[2021-06-12] MEDS: PANTOPRAZOLE 40 MG TABLET PO SCH (07:51)
[2021-06-12 08:28] LABS: African American GFR (CKD) >90 (>60 ml/min/1.73 sqM); Anion Gap 5 mmol/L; Blood Urea Nitrogen 17 mg/dL (7-17); Calcium 10.1 mg/dL (8.4-10.2); Carbon Dioxide 27 mmol/L (22-30); Chloride 106 mmol/L (98-107); Glucose 107 mg/dL (74-99); Non-African American GFR(CKD) 79 (>60 ml/min/1.73 sqM); Potassium 4.1 mmol/L (3.5-5.1); Sodium 138 mmol/L (137-145)
[2021-06-12] MEDS ORDERED: CHOLECALCIFEROL 25 MCG (1000 IU) TABLET PO SCH (09:00)
[2021-06-12] MEDS ORDERED: SENNOSIDES 8.6 MG TAB PO SCH (09:00)
[2021-06-12] MEDS ORDERED: CALCIUM CARBONATE 500 MG CHEWABLE PO SCH (09:00)
[2021-06-12] MEDS ORDERED: GABAPENTIN 300 MG CAP PO SCH (09:00)
[2021-06-12] MEDS ORDERED: ENOXAPARIN 40 MG/0.4 ML SYRINGE SQ SCH (09:00)
[2021-06-12 11:24] VITALS: RESP 17
--- NOTE | 2021-06-12 20:23 | P.PN ---
Subjective Progress Note Date: 06/12/21 Principal diagnosis: Metastatic Disease to Brain She has no acute complaints today. She had her MRI of Brain. Revealing Right Prietal Occipital Rim enhancing lesion 3.4x2.8x3.2cm. A second lesion 2.9x2.3x1.9cm also in the right Parietal region. Dr. Alas from Radiation Oncology has seen and evaluated patient. Planning for mask creation and simulation today prior to discharge. She will stay on Dexamethasone at discharge with PPI and this will be tapered by radiation oncology as we move forward with radiation. Objective - Vital Signs Vital signs: Vital Signs Temp 96.9 F L 06/12/21 05:26 Pulse 71 06/12/21 05:26 Resp 17 06/12/21 08:00 BP 139/71 06/12/21 05:26 Pulse Ox 99 06/12/21 05:26 Intake & Output 06/11/21 06/12/21 06/12/21 18:59 06:59 18:59 Intake Total 750 600 Balance 750 600 Weight 78.5 kg Intake: Intake, IV Titration 750 600 Amount Sodium Chloride 0.9% 1, 750 600 000 ml @ 75 mls/hr IV . [id number] [facility] Rx#:[id number] Other: # Voids 1 1 1 - Constitutional General appearance: Present: cooperative, no acute distress - EENT Eyes: Present: EOMI ENT: Present: NA/AT - Neck Neck: Present: normal ROM - Respiratory Respiratory: bilateral: CTA - Cardiovascular Rhythm: regular - Integumentary Integumentary: Present: pale - Neurologic Neurologic Comment(s): non focal - Musculoskeletal Musculoskeletal: Present: generalized weakness - Psychiatric Psychiatric Comment(s): poor historian Psychiatric: Present: A&O x's 3 - Labs CBC & Chem 7: 06/11/21 03:11 06/12/21 07:32 Labs: Abnormal Lab Results - Last 24 Hours (Table) 06/12/21 Range/Units 07:32 Glucose 107 H (74-99) mg/dL Assessment and Plan (1) Brain metastasis Status: Acute Code(s): C79.31 - SECONDARY MALIGNANT NEOPLASM OF BRAIN SNOMED Code(s): 73894603 (2) Breast cancer Status: Acute Code(s): C50.919 - MALIGNANT NEOPLASM OF UNSP SITE OF UNSPECIFIED FEMALE BREAST SNOMED Code(s): 549118494 (3) Vasogenic brain edema Status: Acute Code(s): G93.6 - CEREBRAL EDEMA SNOMED Code(s): 357386103 Plan: Dr. Alas from Radiation oncology to begin preparation for radiation to two parietal brain lesions Discussed with primary team today and will be ok to discharge patient, Dexamethasone 4mg po TID and PPI sent to pharmacy for patient. Review of MRI, as per HPI with patient and daughter. Follow-up appointment with Dr. Trotter will be rescheduled after radiation, a message has been sent to Pérez in our office to assist with this. Patient does has a afollow-up on 07/07 with [employer] Atiya that has been added to her discharge summary.
--- NOTE | 2021-06-13 03:51 | P.DS ---
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 Patient will follow-up with Dr. Riley in the outpatient setting upon discharge. Patient is to also follow up with oncology and radiation oncology in the outpatient setting. Continue with decadron as prescribed. Total time taken is greater than 35 minutes. Hospital course Patient was a 75-year-old female was sent in because of her memory difficulties and patient is found to have computed tomography scan as an outpatient and found to have a metastatic lesion in the brain along with vasogenic edema after which patient was a presented to the hospital and patient will undergo MRI imaging. Patient recently moved to the town patient was a diagnosed with a breast cancer received chemotherapy at her previous location patient is still undergoing workup now here and does not initiated on chemotherapy here in this town. Patient denied any fever chills patient has elevated TSH with normal T4 patient is supposed to take levothyroxine which she has not been taking and patient is being resumed on that medication at this time. 06/12/2021 Patient is seen in follow up and has been evaluated by oncology and radiation oncology and being fitted for head gear for continued radiation therapy for brain mets. Patient given a prescription for levothyroxine as she has not had and will need repeat tsh/t4 free labs in 4-6 weeks. TSH was elevated although patient has not been taking her medications. Patient started on decadron and will continue as prescribed per oncology. Patient to start treatments of radiation next week.Currently no reports of chest pain, shortness of breath, or palpitations. Patient is afebrile. No reports of nausea or vomiting and patient is tolerating diet. Patient will be discharged home today. GENERAL: The patient is alert and oriented x3, not in any acute distress. Well developed, well nourished. HEENT: Pupils are round and equally reacting to light. EOMI. No scleral icterus. No conjunctival pallor. Normocephalic, atraumatic. No pharyngeal erythema. No thyromegaly. CARDIOVASCULAR: S1 and S2 present. No murmurs, rubs, or gallops. PULMONARY: Chest is clear to auscultation, no wheezing or crackles. ABDOMEN: Soft, nontender, nondistended, normoactive bowel sounds. No palpable organomegaly. MUSCULOSKELETAL: No joint swelling or deformity. EXTREMITIES: No cyanosis, clubbing, or pedal edema. NEUROLOGICAL: Gross neurological examination did not reveal any focal deficits. SKIN: No rashes. Please refer to medication reconciliation sheet for a list of medications Patient Condition at Discharge: Fair Plan - Discharge Summary Discharge Rx Participant: No New Discharge Prescriptions: New Dexamethasone [Decadron] 4 mg PO TID #90 tablet Pantoprazole Sodium [Protonix] 40 mg PO AC-BID #60 tab Continue Gabapentin [Neurontin] 300 mg PO DAILY Cholecalciferol [Vitamin D3 (25 Mcg = 1000 Iu)] 25 mcg PO DAILY fentaNYL 50MCG/HR PATCH [Duragesic 50MCG/HR] 50 mcg TRANSDERM Q72H Sennosides [Senna] 17.2 mg PO DAILY HYDROmorphone HCL 2 - 4 mg PO Q3H PRN PRN Reason: Pain Calcium Carbonate [Calcium] 600 mg PO DAILY Levothyroxine Sodium [Synthroid] 150 mcg PO DAILY 30 Days #45 tab Discharge Medication List Calcium Carbonate [Calcium] 600 mg PO DAILY 06/10/21 [History] Cholecalciferol [Vitamin D3 (25 Mcg = 1000 Iu)] 25 mcg PO DAILY 06/10/21 [History] Gabapentin [Neurontin] 300 mg PO DAILY 06/10/21 [History] HYDROmorphone HCL 2 - 4 mg PO Q3H PRN 06/10/21 [History] Sennosides [Senna] 17.2 mg PO DAILY 06/10/21 [History] fentaNYL 50MCG/HR PATCH [Duragesic 50MCG/HR] 50 mcg TRANSDERM Q72H 06/10/21 [History] Dexamethasone [Decadron] 4 mg PO TID #90 tablet 06/12/21 [Rx] Levothyroxine Sodium [Synthroid] 150 mcg PO DAILY 30 Days #45 tab 06/12/21 [Rx] Pantoprazole Sodium [Protonix] 40 mg PO AC-BID #60 tab 06/12/21 [Rx] Follow up Appointment(s)/Referral(s): Jaja Rajput NPC [Nurse Practitioner] - 07/07/21 10:15 am (keep this appt) Von Alas MD [STAFF PHYSICIAN] - 1 Week (to keep appt on the for radiation treatment) Steffanie Riley MD [Primary Care Provider] - 1-2 days (patient request that family member makes this follow up appointment for her) Patient Instructions/Handouts: Dexamethasone (By mouth), Pantoprazole (By mouth), Breast Cancer in Women (DC), Brain Metastasis (DC) Activity/Diet/Wound Care/Special Instructions: Activity Limited until follow-up Continue taking medications as prescribed Follow-up with oncology outpatient Follow-up with radiation oncology outpatient Follow-up primary care provider on discharge Continue current diet Discharge Disposition: HOME SELF-CARE
== END 2021-06-12 13:34 | disposition home or self-care (01) | DRG 54 ==
LOC: EC 21:17 → 5NMEDONC 22:46 → 1SOBS 06-11 10:36
PROVIDERS: ADMIT Hospitalist; ATTEND Hospitalist
DX: C79.31 Secondary malignant neoplasm of brain (principal); G93.6 Cerebral edema; C79.51 Secondary malignant neoplasm of bone; E05.90 Thyrotoxicosis, unspecified without thyrotoxic crisis or storm; E03.9 Hypothyroidism, unspecified; K52.9 Noninfective gastroenteritis and colitis, unspecified; Z20.822 Contact with and (suspected) exposure to COVID-19; R94.6 Abnormal results of thyroid function studies; I10 Essential (primary) hypertension; G62.9 Polyneuropathy, unspecified; Z91.013 Allergy to seafood; Z79.890 Hormone replacement therapy; Z79.899 Other long term (current) drug therapy; Z85.3 Personal history of malignant neoplasm of breast; Z87.891 Personal history of nicotine dependence; Z91.14 Patient's other noncompliance with medication regimen; Z87.01 Personal history of pneumonia (recurrent)
CPT/HCPCS: 36415; 70553; 80048; 80053; 83735; 84100; 84439; 84443; 84484; 85025; 85610; 85730; 87635; 96361; 96374; 96376; 99285

== ENCOUNTER → 2021-06-10 | Outpatient (CLI) | payer MEDICARE ==
[2021-06-10 12:31] LABS: African American GFR (CKD) >90 (>60 ml/min/1.73 sqM); Blood Urea Nitrogen 21 mg/dL (7-17); Non-African American GFR(CKD) 86 (>60 ml/min/1.73 sqM)
--- NOTE | 2021-06-10 13:55 | CT ---
"EXAMINATION TYPE: CT brain wo/w con DATE OF EXAM: 06/10/2021 COMPARISON: CT brain March 17, 2021 HISTORY: Breast cancer, suspected mets CT DLP: 1991.00 mGycm Automated exposure control for dose reduction was used. CONTRAST: CT scan of the head is performed without and with IV Contrast, patient injected with 100 ml mL of Iso osito 300. FINDINGS: There is no acute intracranial hemorrhage or midline shift. New rim-enhancing 2.6 x 2.8 x 2.8 cm cyst ic lesion with surrounding basal ganglia and right parietal lobe axial image 32 and coronal image 41. New peripheral lower right parietal 2.9 x 2.1 x 1.9 cm rim-enhancing cystic lesion axial image 21 an d coronal image 41 with surrounding vasogenic edema. The ventricles and sulci remaining within normal limits in size. The globes are intact and the visualized sinuses are clear. Nasal septum remains de viated to left of midline. IMPRESSION: 2 new rim-enhancing right-sided cystic lesions with local mass effect/surrounding vasogen ic edema favor metastatic disease given history of breast cancer. Other etiologies not entirely exclu ded. A [place] level critical message alert has been initiated for Callie Trotter MD via the Travel Notes 36 0 | Critical Results System on 06/10/2021 1:52 PM. This message alert has been sent to Callie Trotter MD via the preferences provided by the clinician for the receipt of Radiology Critical Findings. [facility] ID [id number]."
== END | disposition home or self-care (01) ==
LOC: RADCTMAIN 11:19
PROVIDERS: ATTEND Internal Medicine Hematology & Oncology
DX: C50.012 Malignant neoplasm of nipple and areola, left female breast (principal); Z03.89 Encounter for observation for other suspected diseases and conditions ruled out
CPT/HCPCS: 82565; 84520; 70470; 36415; Q9967

== ENCOUNTER → 2021-06-11 | Outpatient (CLI) | payer MEDICARE | END | disposition home or self-care (01) | LOC: RADONCKCI 12:13 | PROVIDERS: ATTEND Radiology Radiation Oncology | DX: Z53.9 Procedure and treatment not carried out, unspecified reason (principal) ==

== ENCOUNTER → 2021-08-12 | Outpatient (CLI) | payer MEDICARE ==
--- NOTE | 2021-08-12 08:28 | MR ---
EXAMINATION TYPE: MR brain wo/w con DATE OF EXAM: 08/12/2021 COMPARISON: MRI brain June 11, 2021 HISTORY: Secondary malignant neoplasm brain. History of metastatic breast cancer. TECHNIQUE: Multiplanar, multisequence images of the brain and brainstem is performed without and with IV contras t, utilizing 7 mL intravenous Gadavist . FINDINGS: Diffusion weighted images demonstrate no evidence of a recent infarct or other diffusion ab normality. The ventricular system and cisternal spaces are normal in size and appearance. The brain volume is age appropriate. Midline structures redemonstrate normal morphology. The craniocervical junction remains within wandy l limits. There is persistent thin-walled cystic lesion with peripheral rim enhancement high right parieto-occi pital level measuring 2.1 x 1.9 cm axial image 55 with less prominent surrounding vasogenic edema dim inished in size 3.4 x 2.8 cm prior study. There is second thin-walled cyst or cystic lesion right par ietal temporal junction measuring 1.4 x 1.0 cm axial image 37 diminished in size from 2.9 x 2.3 cm pr ior study. Improving surrounding vasogenic edema noted. Less well seen on current CT there is residua l faint enhancing 1 to 2 mm mm focus high high posterior left frontal lobe axial image 56 decreased i n size from 6 mm rim enhancement prior study. There is 5 to 6 mm new enhancing lesion with surrounding vasogenic edema high left parietal lobe axia l image 60. There is new rim-enhancing 1.2 x 1.2 cm superficial left frontal lesion axial image 48 wi th some surrounding vasogenic edema. The dural venous sinuses remaining patent. The visualized sinuses are clear and the globes are intact bilaterally. Nasal septum remains deviated to left of midline. IMPRESSION: Overall mixed response as detailed above.
== END | disposition home or self-care (01) ==
LOC: RADMRIMAIN 07:00
PROVIDERS: ATTEND Radiology Radiation Oncology
DX: C79.31 Secondary malignant neoplasm of brain (principal)
CPT/HCPCS: 70553; A9585

== ENCOUNTER → 2021-08-29 | Outpatient (CLI) | payer MEDICARE ==
--- NOTE | 2021-08-29 12:36 | PE ---
EXAMINATION TYPE: PET CT fusion skull to thigh DATE OF EXAM: 08/29/2021 COMPARISON: Prior PET/CT May 09, 2021 HISTORY: Bilateral breast cancers per patient. Patient completed chemotherapy and radiation treatment October 2020. TECHNIQUE: Following the intravenous administration of 11.8 mCi of F-18 FDG, whole body images are p erformed from the skull base to the midthigh. Images are reviewed on the computer in the coronal, ax ial, and sagittal planes. Reconstructed rotating images are created on independent workstation and r eviewed on the computer. A localization and attenuation correction CT is performed in conjunction w ith the PET scan. Blood glucose level equals 88. SCAN: Subsequent Scan FINDINGS: SKULL BASE AND NECK: No new areas of abnormal hypermetabolic uptake. CHEST, MEDIASTINUM, AND HILAR REGION: Suspect treatment changes to the left breast laterally with jarocho cifications axial image 89 redemonstrated. Surgical clip left axilla now thought present axial image 79 near site of prior prominent lymph node. Slight nodularity or nodular scarring posteriorly in the bilateral lung bases remains present without abnormal hypermetabolic uptake. No new areas of abnormal hypermetabolic uptake. Scattered fibroglandular tissue throughout right breast with new calcificatio n and/or surgical clips. ABDOMEN AND PELVIS: No new areas of abnormal hypermetabolic uptake. Normal excretion. OSSEOUS STRUCTURES: No new areas of abnormal hypermetabolic uptake. OTHER CT: Stable right internal jugular Mediport catheter. Mild Coronary artery calcification redemon strated. Stable mild cardiomegaly. Prominent bilateral pulmonary arteries redemonstrated raising conc allyson for underlying pulmonary artery hypertension. Simple appearing thin-walled cysts throughout the liver redemonstrated. [id number] sized hiata l hernia redemonstrated. Calcified near 1 cm thought to be uterine fibroid in the anterior fundus red emonstrated. Vertebroplasty at mild to moderate compression fracture L4 level again seen. Underlying scoliotic cur vature. Facet arthropathy lower lumbar levels. IMPRESSION: No suspicious hypermetabolic uptake to suggest active or recurrent metastatic hypermetabo lic malignancy.
== END | disposition home or self-care (01) ==
LOC: RADXRMAIN 07:42
PROVIDERS: ATTEND Internal Medicine Hematology & Oncology
DX: Z12.39 Encounter for other screening for malignant neoplasm of breast (principal)
CPT/HCPCS: 78815; A9552

== ENCOUNTER → 2021-10-30 | Outpatient (CLI) | payer MEDICARE ==
--- NOTE | 2021-10-31 07:09 | MR ---
EXAMINATION TYPE: MR brain wo/w con DATE OF EXAM: 10/30/2021 COMPARISON: Prior MRI brain August 12, 2021 and older study June 11, 2021 HISTORY: Secondary malignant neoplasm of brain follow up. Metastatic breast cancer. TECHNIQUE: Multiplanar, multisequence images of the brain and brainstem is performed without and with IV contras t, utilizing 7 mL intravenous Gadavist . FINDINGS: Diffusion weighted images demonstrate no evidence of a recent infarct or other diffusion ab normality. The ventricular system and cisternal spaces remain normal in size and appearance. The br ain volume is age appropriate. Midline structures redemonstrate normal morphology. The craniocervical junction remains within wandy l limits. There is persistent thin-walled cystic lesion with peripheral rim enhancement high right parieto-occi pital level measuring 2.1 x 2.0 cm axial image 104 with increasing surrounding vasogenic edema otherw ise stable in size from most recent MRI. There is more prominent rim-type enhancement with slight nod ular component posteriorly redemonstrated. The prior second thin-walled cyst or cystic lesion right parietal temporal junction is now only faint ly identified on T2 and FLAIR weighted axial image 27 not clearly seen on postcontrast T1-weighted im aging. This is overall improved. The prior visualized residual faint enhancing 1 to 2 mm mm focus high high posterior left frontal lob e axial image 56 prior study now shows 1 to 2 mm focal T1 round hypointensity. There is 8 x 5 mm enlarging enhancing lesion with worsening surrounding vasogenic edema high left par ietal lobe axial image 118 current study. The prior visualized rim-enhancing 1.2 x 1.2 cm superficial left frontal lesion axial image 48 with s ome surrounding vasogenic edema now more elongated measuring 1.2 x 0.7 cm axial image 97 with improve d surrounding edema. There is new high 4 mm enhancing metastatic focus axial image 122 with surrounding vasogenic edema The dural venous sinuses remaining patent. The visualized sinuses are clear and the globes are intact bilaterally. Nasal septum remains deviated to left of midline. IMPRESSION: Overall mixed response as detailed above.
== END | disposition home or self-care (01) ==
LOC: RADMRIMAIN 14:43
PROVIDERS: ATTEND Radiology Radiation Oncology
DX: C79.31 Secondary malignant neoplasm of brain (principal)
CPT/HCPCS: 70553; A9585

== ENCOUNTER → 2021-12-26 | Outpatient (CLI) | payer MEDICARE ==
--- NOTE | 2021-12-26 12:46 | MR ---
EXAMINATION TYPE: MR brain wo/w con DATE OF EXAM: 12/26/2021 COMPARISON: 10/30/2021 HISTORY: Follow-up brain metastases TECHNIQUE: Multiplanar, multisequence images of the brain and brainstem is performed without and with IV contras t, utilizing 7 mL intravenous Gadavist . FINDINGS: New Partially cystic partially solid nodule right frontal lobe measuring 2.5 mm image 93. New left fr ontal 6.2 mm partially cystic partially solid lesion image 93 of 166. Enlarging predominantly cystic lesion high right frontal parietal region image 110 currently measuring 1.8 x 1.7 cm versus 1.7 x 1.5 cm previously. Surrounding vasogenic edema. Additional partially solid partially cystic lesion high left frontal parietal region is also slightly larger in size image 119 and measures 8 x 9 mm versus 8 x 5 mm previously. High left frontal lesion is enlarged as well measuring 7 mm versus 4 mm image 122 . Stable mixed lesion left frontal lobe measuring 11 x 5 mm versus 12 x 7 mm previously. No additiona l lesions are seen with certainty. Diffusion weighted images demonstrate no evidence of a recent infarct or other diffusion abnormality. There is no extra-axial fluid collection The ventricular system and cisternal spaces are normal in size and appearance. Mild age related atrophic changes. Midline structures demonstrate normal morpho logy. The craniocervical junction appears within normal limits. The visualized sinuses are clear an d the globes are intact. IMPRESSION: 1. Progression of metastatic disease with a couple of new lesions as discussed above and enlarging le sions.
== END | disposition home or self-care (01) ==
LOC: RADMRIMAIN 11:26
PROVIDERS: ATTEND Radiology Radiation Oncology
DX: C79.31 Secondary malignant neoplasm of brain (principal); C78.01 Secondary malignant neoplasm of right lung; C78.7 Secondary malignant neoplasm of liver and intrahepatic bile duct; C50.412 Malignant neoplasm of upper-outer quadrant of left female breast; Z92.3 Personal history of irradiation
CPT/HCPCS: 70553; A9585

== ENCOUNTER → 2022-01-23 | Outpatient (CLI) | payer MEDICARE ==
--- NOTE | 2022-01-26 10:12 | PE ---
Nuclear medicine PET/CT HISTORY: Metastatic left breast cancer, subsequent Patient received 12.6 mCi F-18 FDG intravenously and delayed scanning was performed from the skull ba se to the mid thighs. A localization and attenuation correction CT scan was performed. Correlation to prior nuclear medicine PET/CT 08/29/2021 Average mediastinal uptake SUV 1.7, average liver uptake SUV 2.1 Brain lesion is partially visualized. Chest and neck: There is no suspicious uptake. No cervical or supraclavicular adenopathy. There is a port in the right pectoral region, catheter courses via an intraventricular jugular approa ch to the cavoatrial junction. There is some mitral annular calcification suspected, coronary artery calcification. There is no pleural or pericardial effusion. No evident lung mass. There is no mediast inal, axillary, or hilar adenopathy. ABDOMEN: There are hypodense foci within the liver, additionally some scattered peripheral probable c ystic areas are present. The large masses within the liver show hypermetabolic uptake and have develo ped in the interval, SUV range approximately 7.9-16. 4 lesions are present. Additionally there is ret roperitoneal, portal adenopathy, SUV values 67 range. There is no ascites. No pelvic adenopathy. Osseous structures show no suspicious uptake. IMPRESSION: Metastatic disease to the liver and brain
== END | disposition home or self-care (01) ==
LOC: RADPETMAIN 11:02
PROVIDERS: ATTEND Internal Medicine Hematology & Oncology
DX: C50.012 Malignant neoplasm of nipple and areola, left female breast (principal)
CPT/HCPCS: 78815; A9552